=== PATIENT | female | born 1970 | race Caucasian/White ===

== ENCOUNTER → 2017-02-09 | Outpatient (CLI) | payer OTHER ==
[2017-02-10 10:39] LABS: Alternaria alternata IgE <0.35 kU/L (<0.35); Asperg. fumagatus IgE <0.35 kU/L (<0.35); Asperg. fumagatus IgE Class CLASS 0; Aureo. pullulans IgE <0.35 kU/L (<0.35); Birch(Com.Silvr) IgE Class CLASS 0; Candida albicans IgE Class CLASS 0; Cat Epith & Dander IgE <0.35 kU/L (<0.35); Cat Epith & Dander IgE Class CLASS 0; Clad herbarum IgE <0.35 kU/L (<0.35); Clad herbarum IgE Class CLASS 0; Com. Pigweed IgE <0.35 kU/L (<0.35); Com. Pigweed IgE Class CLASS 0; Common Ragweed IgE Class CLASS 0; Dermato. Pteronyssinus Class CLASS 0; Dermato. Pteronyssinus IgE <0.35 kU/L (<0.35); Dermato. farinae IgE <0.35 kU/L (<0.35); Dermato. farinae IgE Class CLASS 0; English Plantain IgE Class CLASS 0; Epicoccum purpurascens Class CLASS 0; Epicoccum purpurascens IgE <0.35 kU/L (<0.35); Johnson Grass IgE Class CLASS 0; Lamb's Quarter IgE <0.35 kU/L (<0.35); Lamb's Quarter IgE Class CLASS 0; Maple (Box Elder) IgE <0.35 kU/L (<0.35); Maple (Box Elder) IgE Class CLASS 0; Mucor racemosus IgE <0.35 kU/L (<0.35); Mucor racemosus IgE Class CLASS 0; Oak IgE <0.35 kU/L (<0.35); Rhizopus nigricans IgE <0.35 kU/L (<0.35); Rhizopus nigricans IgE Class CLASS 0; S.rostrata/Helminth Class CLASS 0; S.rostrata/Helminth IgE <0.35 kU/L (<0.35); Sycamore(Mpl.Lf) IgE <0.35 kU/L (<0.35); Sycamore(Mpl.Lf) IgE Class CLASS 0; Timothy Grass IgE <0.35 kU/L (<0.35); Timothy Grass IgE Class CLASS 0; Walnut Tree IgE <0.35 kU/L (<0.35); White Ash IgE Class CLASS 0
[2017-02-11 19:31] LABS: Corn IgG 7.5 mcg/mL (< 2.0); Cow's Milk IgG 48.7 mcg/mL (< 2.0); Oat IgG 8.9 mcg/mL (< 2.0); Peanut IgG 3.7 mcg/mL (< 2.0); Soybean IgG 4.3 mcg/mL (< 2.0); Tomato IgG 6.4 mcg/mL (< 2.0); Wheat IgG 7.1 mcg/mL (< 2.0)
[2017-02-22 14:21] LABS: Mis test requested (Blood) Coconut IgG
== END | disposition home or self-care (01) ==
LOC: LABWHC1 14:50
PROVIDERS: ATTEND Otolaryngology
DX: J30.89 Other allergic rhinitis (principal)
CPT/HCPCS: 36415; 86001; 86003

== ENCOUNTER → 2018-11-09 | Outpatient (CLI) | payer OTHER ==
--- NOTE | 2018-11-09 09:30 | US ---
EXAMINATION TYPE: US axilla LT DATE OF EXAM: 11/09/2018 COMPARISON: NONE CLINICAL HISTORY: R22.9 Localized swelling, mass and lump. TECHNIQUE: Targeted color and grayscale ultrasound was performed of the patient's left axillary palpa ble abnormality. At the region of the palpable left axillary abnormality for which the patient has be en on antibiotics for 20 days there is a 2.7 x 1.1 x 2.8 cm complex fluid collection with irregular m argins in extensive peripheral vascular flow. No internal vascular flow is seen. Surrounding subcutan eous tissue is hyperechoic. IMPRESSION: Sonographic findings are most compatible with a 2.8 cm abscess. No internal vascular james w is seen. No clinical resolution, this would be amenable to percutaneous drainage.
== END | disposition home or self-care (01) ==
LOC: RADMAMWWP 08:17
PROVIDERS: ATTEND Surgery
DX: R22.9 Localized swelling, mass and lump, unspecified (principal)
CPT/HCPCS: 77066

== ENCOUNTER → 2018-11-09 | Outpatient (CLI) | payer OTHER ==
[2018-11-09 07:20] VITALS: BP 114/75; PULSE 64; RESP 16; TEMP 98; BMI 23.7
--- NOTE | 2018-11-09 07:46 | P.GSHP ---
History of Present Illness H&P Date: 11/09/18 Chief Complaint: swelling under left arm June is a 48-year-old white female with a complaint of a left swollen axillary nodule for approximately 6 weeks. She has been on two antibiotics sulfa and keflex. It has not resolved. It is painful. It has increased in size. She has not had any trauma or infection to her arm. She was taking some homeopathic medications about the time she noted the swelling. She uses compounded Estrogen cream. She has been on that for about three years. Her last mamogram was several years ago. She has not had any fever or chills. Family History: mother: breast cancer at 66, she is well at this time father: prostate cancer maternal aunt: breast cancer brother: prostate Hormonal History: menarche: 9 2Ab, first full term 25, breast fed: yes menopause: 44 BCP: none hormones: 3 years Surgery: none Medical History: none Social History: smoke: none alcohol: wine drugs: none - Constitutional Constitutional: Denies chills, Denies fever - EENT Comment: decreased acuity Eyes: denies blurred vision, denies pain Ears: deny: decreased hearing, tinnitus Ears, nose, mouth and throat: Denies headache, Denies sore throat - Breasts Breasts: bilateral: as per HPI - Cardiovascular Cardiovascular: Denies chest pain, Denies shortness of breath - Respiratory Respiratory: Denies cough, Denies 7 - Gastrointestinal Gastrointestinal: Denies abdominal pain, Denies diarrhea, Denies nausea, Denies vomiting - Genitourinary (Female) Genitourinary: Denies dysuria, Denies hematuria - Menstruation Menstruation: Reports postmenopausal - Musculoskeletal Musculoskeletal: Denies myalgias - Integumentary Integumentary: Denies pruritus, Denies rash - Neurological Neurological: Denies numbness, Denies weakness - Psychiatric Psychiatric: Denies anxiety, Denies depression - Endocrine Endocrine: Denies fatigue, Denies weight change - Hematologic/Lymphatic Comment: swollen node under left arm - Allergic/Immunologic Comment: none Past Medical History Past Medical History: No Reported History History of Any Multi-Drug Resistant Organisms: None Reported Past Surgical History: No Surgical Hx Reported Past Anesthesia/Blood Transfusion Reactions: No Reported Reaction Past Psychological History: No Psychological Hx Reported Smoking Status: Never smoker Past Alcohol Use History: Occasional Past Drug Use History: None Reported - Past Family History Mother Family Medical History: Cancer Additional Family Medical History / Comment(s): Breast Cancer at age 66 Father Family Medical History: Cancer Additional Family Medical History / Comment(s): Prostate Cancer at age 66 Medications and Allergies Home Medications Medication Instructions Recorded Confirmed Type Cephalexin [Keflex] 500 mg PO Q12HR 11/09/18 11/09/18 History Allergies Allergy/AdvReac Type Severity Reaction Status Date / Time No Known Allergies Allergy Unverified 11/09/18 07:08 Surgical - Exam Vital Signs Temp Pulse Resp BP Pulse Ox 98.0 F 64 16 114/75 98 11/09/18 07:11 11/09/18 07:11 11/09/18 07:11 11/09/18 07:11 11/09/18 07:11 BMI 23.8 - General well developed, well nourished, no distress - Eyes normal ocular movement - ENT no hearing loss, no congestion - Neck no masses, trachea midline - Respiratory normal respiratory effort, clear to auscultation - Cardiovascular Rhythm: regular Heart Sounds: normal: S1, S2 - Abdomen Abdomen: soft, non tender, no guarding, no rigid, no rebound - Integumentary Swollen left axillary node/abcess about 3 by 2 cm in size - Neurologic no disoriented, no combative - Musculoskeletal normal gait, normal posture - Psychiatric oriented to time, oriented to person, oriented to place, speech is normal, memory intact Assessment and Plan Assessment: Impression: 1. swollen left axillary node/abscess 2. presently on Keflex 3. family history of cancer 4. family history of breast cancer 5. no other adenopathy of concern Plan: 1. bilateral mammogram 2. left axillary ultrasound 3. I&D left axillary abcess CC: Dr. Mendez, Dr. Quinonez
== END | disposition home or self-care (01) ==
LOC: WWCWWP 06:58
PROVIDERS: ATTEND Surgery
DX: Z53.9 Procedure and treatment not carried out, unspecified reason (principal)

== ENCOUNTER 2018-11-14 07:19 | Day surgery (SDC) | payer OTHER ==
[2018-11-10 09:17] VITALS: BMI 23.7
[~2018-11-14 07:19] MED LIST: DEXAMETHASONE SOD PHOSPHATE 10 MG/ML 1 ML VIAL IV ONE; HYDROmorphone 0.5 MG/0.5 ML SYRINGE IVP PRN; LACTATED RINGERS 1,000 ML IV SCH; ONDANSETRON 4 MG/2 ML VIAL IVP ONE; ONDANSETRON 4 MG/2 ML VIAL IVP PRN
[2018-11-14] MEDS ORDERED: LIDOCAINE 1% 20 ML VIAL (10MG/ML) FOR IV START INTRADERMA ONE (08:11)
[2018-11-14] MEDS ORDERED: LIDOCAINE 1% INJ 10MG/ML (20 ML MDV) ONE (08:26)
[2018-11-14] MEDS ORDERED: PROPOFOL 10 MG/ML 20 ML VIAL IV ONE (08:26)
[2018-11-14] MEDS ORDERED: fentaNYL (PF) 50 MCG/ML 2 ML AMP ONE (08:26)
[2018-11-14] MEDS ORDERED: SUCCINYLCHOLINE CHLORIDE 100 MG/5 ML SYR IV ONE (08:26)
[2018-11-14] MEDS ORDERED: MIDAZOLAM 2 MG/2 ML VIAL ONE (08:26)
[2018-11-14] MEDS ORDERED: HEPARIN SODIUM,PORCINE 5,000 UNIT/ML 1 ML VIAL SQ ONE (08:39)
--- NOTE | 2018-11-14 08:42 | P.PN ---
Progress Note - Text Progress Note Date: 11/14/18 The patient's ultrasound of the axilla was reviewed with radiology. The lesion was not felt to be able to be drained percutaneously. Therefore after discussion with the patient she is having incision and drainage of the lesion in the left axilla done in the operating room.
--- NOTE | 2018-11-14 09:14 | P.OP ---
Date of Procedure: 11/14/18 Preoperative Diagnosis: Abscess left axilla Postoperative Diagnosis: Same Procedure(s) Performed: Incision and drainage abscess left axilla Anesthesia: MACHELLE Surgeon: Jessica Livingston Estimated Blood Loss (ml): 5 IV fluids (ml): 600 Pathology: other (Contents of abscess) Condition: stable Disposition: same day Indications for Procedure: Enlarging abscess left axilla not be able to be drained percutaneously Operative Findings: Abscess left axilla Description of Procedure: The patient was brought to the operating room and following induction of anesthesia the left axilla was prepped and draped in a sterile fashion. An incision was made over the protruding portion of an abscess. Seropurulent fluid was obtained. Cultures were obtained. There was what appeared to be sebum within the cavity which was removed. This was sent to pathology. As the cavity was very friable. They were cauterized to attain hemostasis. The cavity itself was approximately 3 cm x 3 cm. The cavity was well irrigated after cultures were obtained. Secondary to the persistent oozing powderized Surgicel was placed. After we were assured that hemostasis was attained the area was packed using plain gauze. The patient tolerated the procedure in stable condition. All instrument and sponge counts were correct at the end of the case.
--- NOTE | 2018-11-14 09:16 | P.DS ---
Providers Attending physician: Jessica Livingston Primary care physician: Kevin Quinonez DO Plan - Discharge Summary Discharge Rx Participant: Yes New Discharge Prescriptions: No Action Cephalexin [Keflex] 500 mg PO Q12HR Discharge Medication List Cephalexin [Keflex] 500 mg PO Q12HR 11/09/18 [History] Follow up Appointment(s)/Referral(s): Jessica Livingston MD [STAFF PHYSICIAN] - 3 Days Activity/Diet/Wound Care/Special Instructions: Do not drive today Change packing twice a day May shower tomorrow Discharge Disposition: HOME SELF-CARE
[2018-11-14 09:27] VITALS: TEMP 96.8
[2018-11-14] MEDS: HYDROmorphone 1 MG/ML 1 ML SYRINGE IVP ONE ×2 (10:02→10:07)
[2018-11-14 10:39] VITALS: RESP 16
[2018-11-14] MEDS ORDERED: ONDANSETRON 4 MG/2 ML VIAL IVP ONE (11:40)
[2018-11-14] MEDS ORDERED: LACTATED RINGERS 1,000 ML IV ONE (11:44)
[2018-11-14 11:48] VITALS: BP 99/65; PULSE 62
== END 2018-11-14 13:05 | disposition home or self-care (01) ==
LOC: OR 07:19
PROVIDERS: ATTEND Surgery
DX: L02.412 Cutaneous abscess of left axilla (principal)
CPT/HCPCS: 81025; 88304; 87070; 87205; 87075; 87116; 87102; 87206; 10060; J2250; J0690; J2405; J2001; J3010; J1170; J0330; J2704

== ENCOUNTER → 2018-11-17 | Outpatient (CLI) | payer OTHER ==
[2018-11-17 14:14] VITALS: BP 115/76; PULSE 76; RESP 16; TEMP 97.8; BMI 24.1
--- NOTE | 2018-11-17 14:25 | P.PN ---
Progress Note - Text Progress Note Date: 11/17/18 Serious status post incision and drainage of the abscessed area under her left axilla on 9318. Pathology revealed necrotic/degenerated tissue with acute inflammation. The cultures were negative. The patient has not had any fever or chills. The patient does complain of discomfort at the site of the the abscess. Physical exam: Lungs: Clear Heart: Regular rate and rhythm Left axillary incision clean and dry with clean granulation tissue Impression: Resolving abscess left axilla Plan: 1. Continue present therapy 2. Follow-up 2 weeks CC: DR. Mendez, Dr. Quinonez
== END | disposition home or self-care (01) ==
LOC: WWCWWP 13:40
PROVIDERS: ATTEND Surgery
DX: Z53.9 Procedure and treatment not carried out, unspecified reason (principal)

== ENCOUNTER → 2018-11-21 | Outpatient (CLI) | payer OTHER ==
--- NOTE | 2018-11-21 10:37 | MM ---
Reason for exam: additional evaluation requested from abnormal screening. Last mammogram was performed less than 1 month ago. History: Patient is postmenopausal. Family history of breast cancer in mother at age 66 and breast cancer in maternal aunt at age 53. Taking estrogen beginning at age 44. Taking progesterone beginning at age 44. Taking other hormone beginning at age 44. MG 3D Follow Up No Charge RT Spot compression CC and LM view(s) were taken of the right breast. Prior study comparison: November 09, 2018, bilateral MG diagnostic mammo w CAD [facility]. The breast tissue is heterogeneously dense. This may lower the sensitivity of mammography. Right medial asymmetry resolves on additional views. The right lateral middle depth asymmetry improves but does not completely resolve. Superior correlate seen. Precautionary ultrasound will be done. These results were verbally communicated with the patient and result sheet given to the patient on 11/21/18. ASSESSMENT: Incomplete: need additional imaging evaluation, BI-RAD 0 RECOMMENDATION: Ultrasound of the right breast. (upper outer quadrant)
--- NOTE | 2018-11-21 10:39 | USB ---
Reason for exam: additional evaluation requested from abnormal screening. History: Patient is postmenopausal. Family history of breast cancer in mother at age 66 and breast cancer in maternal aunt at age 53. Taking estrogen beginning at age 44. Taking progesterone beginning at age 44. Taking other hormone beginning at age 44. US Breast Workup Limited RT Right limited breast ultrasound including focal area of concern, retroareolar and axilla demonstrates no cystic or solid lesion seen. Dense tissue throughout corresponds with mammogram. These results were verbally communicated with the patient and result sheet given to the patient on 11/21/18. ASSESSMENT: Benign, BI-RAD 2 RECOMMENDATION: Routine screening mammogram of both breasts in 1 year. Manage on a clinical basis with regard to left axillary abscess.
== END | disposition home or self-care (01) ==
LOC: RADMAMWWP 08:55
PROVIDERS: ATTEND Surgery
DX: R92.8 Other abnormal and inconclusive findings on diagnostic imaging of breast (principal)

== ENCOUNTER → 2018-12-08 | Outpatient (CLI) | payer OTHER ==
[2018-12-08 09:04] VITALS: BP 115/71; PULSE 61; RESP 16; TEMP 97.7; BMI 23.7
--- NOTE | 2018-12-08 09:21 | P.PN ---
Progress Note - Text Progress Note Date: 12/08/18 The patient is status post excision of a lump in the left axilla on 11-14-18. Pathology revealed necrotic/degenerated tissue with acute inflammation. Cultures were negative. The patient is not complaining of any fever or chills. She is not having any drainage of the area of concern. The area she has an packing is smaller in size. She is not complaining of any pain at this site. Physical exam: Examination of the left axillary area reveals that the area which was excised is clean and dry. It is healing without difficulty. Impression: 1. Area under the left arm is healing without difficulty Plan: 1. Follow-up on a when necessary basis Cc: Dr. Mendez, DR. Quinonez
== END ==
LOC: WWCWWP 08:43
PROVIDERS: ATTEND Surgery
DX: Z53.9 Procedure and treatment not carried out, unspecified reason (principal)

== ENCOUNTER → 2019-09-27 | Outpatient (CLI) | payer BC, OTHER | END | disposition home or self-care (01) | LOC: LABWHC1 09:28 | PROVIDERS: ATTEND Internal Medicine | DX: Z20.828 Contact with and (suspected) exposure to other viral communicable diseases (principal) | CPT/HCPCS: U0003; C9803 ==

== ENCOUNTER → 2020-01-23 | Outpatient (CLI) | payer BC | END | disposition home or self-care (01) | LOC: LABWHC1 12:09 | PROVIDERS: ATTEND Internal Medicine | DX: Z20.828 Contact with and (suspected) exposure to other viral communicable diseases (principal) | CPT/HCPCS: U0003; C9803 ==

== ENCOUNTER → 2020-08-18 | Outpatient (CLI) | payer BC ==
--- NOTE | 2020-08-20 11:51 | MM ---
Reason for exam: screening (asymptomatic). Last mammogram was performed 1 year and 9 months ago. History: Patient is postmenopausal. Family history of breast cancer in mother at age 66 and breast cancer in maternal aunt at age 53. Taking estrogen beginning at age 44. Taking progesterone beginning at age 44. Taking other hormone beginning at age 44. Physical Findings: A clinical breast exam by your physician is recommended on an annual basis and results should be correlated with mammographic findings. MG 3D Screening Mammo W/Cad Bilateral CC and MLO view(s) were taken. Prior study comparison: November 09, 2018, bilateral MG diagnostic mammo w CAD [facility]. The breast tissue is heterogeneously dense. This may lower the sensitivity of mammography. There is chronic nodularity in the left breast, low density, posterior upper outer quadrant. No significant changes when compared with prior studies. ASSESSMENT: Benign, BI-RAD 2 RECOMMENDATION: Routine screening mammogram of both breasts in 1 year. Patient should continue monthly self breast exams. A negative report should not preclude additional follow up of suspicious palpable abnormalities.
== END | disposition home or self-care (01) ==
LOC: RADMAMWWP 16:05
PROVIDERS: ATTEND Obstetrics & Gynecology
DX: Z12.31 Encounter for screening mammogram for malignant neoplasm of breast (principal); Z78.0 Asymptomatic menopausal state; Z80.3 Family history of malignant neoplasm of breast
CPT/HCPCS: 77063; 77067

== ENCOUNTER 2020-11-05 16:04 | Emergency (ER) | payer BC ==
[2020-11-05 16:53] VITALS: RESP 18; TEMP 98
--- NOTE | 2020-11-05 20:16 | US ---
EXAMINATION TYPE: US venous doppler duplex LE RT DATE OF EXAM: 11/05/2020 7:10 PM COMPARISON: NONE CLINICAL HISTORY: pain. Pain. SIDE PERFORMED: Right TECHNIQUE: The lower extremity deep venous system is examined utilizing real time linear array sonog aki with graded compression, doppler sonography and color-flow sonography. VESSELS IMAGED: Common Femoral Vein Deep Femoral Vein Greater Saphenous Vein * Femoral Vein Popliteal Vein Proximal Calf Veins (* superficial vessels) Right Leg: All visualized veins are patent, compressible, and with normal color and Doppler flow. IMPRESSION: No DVT of the right lower extremity.
--- NOTE | 2020-11-05 20:29 | ED ---
Recheck HPI - General Chief Complaint: Recheck/Abnormal Lab/Rx Stated Complaint: R Foot circulation issue Time Seen by Provider: 11/05/20 18:23 Source: patient, RN notes reviewed Mode of arrival: ambulatory Limitations: no limitations - History of Present Illness Initial Comments: 50-year-old female complaining of poor circulation her right lower extremity status post fifth metatarsal fracture. She notes that after getting out of the shower her foot gets red and cold. She notes that she was sent here by her orthopedist to get an evaluation for possible DVT. Patient denied any pain, she has full range of motion sensation in her right foot and lower extremity. She denied any new injury trauma. She denied any chest pain shortness of breath hea dache nausea vomiting diarrhea constipation fever fatigue chills. - Related Data Home Medications Medication Instructions Recorded Confirmed No Known Home Medications 11/05/20 11/05/20 Allergies Allergy/AdvReac Type Severity Reaction Status Date / Time No Known Allergies Allergy Verified 11/05/20 18:30 Review of Systems ROS Statement: Those systems with pertinent positive or pertinent negative responses have been documented in the HPI. ROS Other: All systems not noted in ROS Statement are negative. Past Medical History Past Medical History: No Reported History Additional Past Medical History / Comment(s): Current pain/infection left axillary area, on antibiotics, finishing today. History of Any Multi-Drug Resistant Organisms: None Reported Past Surgical History: No Surgical Hx Reported Additional Past Surgical History / Comment(s): Had broken nose reset. broken right foot - 3 weeks ago (date today 11-05-20) Past Anesthesia/Blood Transfusion Reactions: No Reported Reaction Past Psychological History: No Psychological Hx Reported Smoking Status: Never smoker Past Alcohol Use History: Occasional Past Drug Use History: None Reported - Past Family History Mother Family Medical History: Cancer Additional Family Medical History / Comment(s): Breast Cancer at age 66. Father Family Medical History: Cancer Additional Family Medical History / Comment(s): Prostate Cancer at age 66. Brother(s) Family Medical History: Cancer Additional Family Medical History / Comment(s): Prostate cancer. General Exam Limitations: no limitations General appearance: alert, in no apparent distress Head exam: Present: atraumatic, normocephalic, normal inspection Eye exam: Present: normal appearance, PERRL, EOMI. Absent: scleral icterus, conjunctival injection, periorbital swelling Neck exam: Present: normal inspection Respiratory exam: Present: normal lung sounds bilaterally. Absent: respiratory distress, wheezes, rales, rhonchi, stridor Cardiovascular Exam: Present: regular rate, normal rhythm, normal heart sounds. Absent: systolic murmur, diastolic murmur, rubs, gallop, clicks Back exam: Present: normal inspection, other (Pulses 2+ bilaterally in lower extremities.) Neurological exam: Present: alert, oriented X3 Psychiatric exam: Present: normal affect, normal mood Skin exam: Present: warm, dry, intact, normal color. Absent: rash Course Vital Signs 11/05/20 16:49 Temperature 98.0 F Pulse Rate 76 Respiratory 18 Rate Blood Pressure 117/63 O2 Sat by Pulse 99 Oximetry Medical Decision Making - Medical Decision Making 30-year-old female complaining of circulation pain issues in her right lower extremity status post fifth metatarsal fracture. Patient sent by Dr. Carver. Ultrasound of the right lower external ordered. Ultrasound negative for any DVTs. Patient will be referred to vascular. Case discussed with Dr. Rivas, patient discharge home. - Radiology Data Radiology results: report reviewed, image reviewed Ultrasound of the right lower extremity: All visualized veins are patent compressible and within normal color and Doppler flow. No DVT the right lower extremity. Disposition Clinical Impression: Right foot pain, Poor circulation of extremity Disposition: HOME SELF-CARE Condition: Stable Instructions (If sedation given, give patient instructions): Metatarsalgia (DC) Additional Instructions: Please return to the Emergency Department if symptoms worsen or any other concerns. Follow-up with vascular as soon as possible. Follow-up with primary care 1-2 days. Continue to follow with orthopedics as needed. Is patient prescribed a controlled substance at d/c from ED?: No Referrals: Kevin Quinonez DO [Primary Care Provider] - 1-2 days Irena Campbell DO [STAFF PHYSICIAN] - 1-2 days Time of Disposition: 20:27
[2020-11-05 20:36] VITALS: BP 118/60; PULSE 78
== END 2020-11-05 20:36 | disposition home or self-care (01) ==
LOC: EC 16:04
DX: M79.671 Pain in right foot (principal)
CPT/HCPCS: 99283

== ENCOUNTER → 2022-07-23 | Outpatient (CLI) | payer BC ==
--- NOTE | 2022-07-26 18:15 | MM ---
Reason for Exam: Screening (asymptomatic). Last mammogram was performed 1 year(s) and 11 month(s) ago. Patient History: Menarche at age 9. First Full-Term at age 25. Postmenopausal. Patient has history of breast feeding. Estrogen, starting at age 44. Currently using Progesterone, starting at age 44. Maternal aunt had breast cancer, age 53. Mother had breast cancer, age 66. Risk Values: Samantha 5 year model risk: 2.4%. NCI Lifetime model risk: 17.5%. Prior Study Comparison: 11/09/2018 Bilateral Diagnostic Mammogram, [facility]. 11/21/2018 Right Diagnostic Mammogram, [facility]. 08/18/2020 Bilateral Screening Mammogram, [facility]. Tissue Density: The breast tissue is heterogeneously dense. This may lower the sensitivity of mammography. Findings: Analyzed By CAD. Areas of bilateral asymmetric densities remain unchanged. There is no suspicious group of microcalcifications or new suspicious mass in either breast. Overall Assessment: Benign, BI-RAD 2 Management: Screening Mammogram of both breasts in 1 year. . Patient should continue monthly self-breast exams. A clinical breast exam by your physician is recommended on an annual basis. This exam should not preclude additional follow-up of suspicious palpable abnormalities. Note on Samantha scores and lifetime risk: 1. A Samantha score greater than 3% is considered moderate risk. If this is the case, consider specialist referral to assess eligibility for a risk reducing agent. 2. If overall lifetime risk for the development of breast cancer is 20% or higher, the patient may qualify for future screening with alternating mammogram and breast MRI. Electronically signed and approved by: Kamila Elise M.D. Radiologist
== END | disposition home or self-care (01) ==
LOC: RADMAMWWP 10:58
PROVIDERS: ATTEND Obstetrics & Gynecology
DX: Z12.31 Encounter for screening mammogram for malignant neoplasm of breast (principal); Z78.0 Asymptomatic menopausal state; Z80.3 Family history of malignant neoplasm of breast
CPT/HCPCS: 77063; 77067

== ENCOUNTER → 2023-08-12 | Outpatient (CLI) | payer BC ==
[2023-08-12 15:38] LABS: Appearance,Urine Clear (Clear); Bilirubin,Urine Negative (Negative); Blood,Urine Negative (Negative); Color,Urine Yellow (Yellow); Ketones,Urine Negative (Negative); Nitrite,Urine Negative (Negative); PH, Urine 6.5; Specific Gravity,Urine 1.005 (1.001-1.030); Urobilinogen,Urine 0.2 E.U./DL
[2023-08-12 15:41] LABS: Basophils # (A) 0.02 X 10*3/uL (0.00-0.10); Basophils % (A) 0.3 %; Eosinophils # (A) 0.09 X 10*3/uL (0.04-0.35); Eosinophils % (A) 1.3 %; HCT 44.2 % (37.2-46.3); HGB 14.8 g/dL (12.0-15.0); Lymphocytes # (A) 2.86 X 10*3/uL (0.90-5.00); Lymphocytes % (A) 42.4 %; MCH 31.2 pg (27.0-32.0); MCHC 33.5 g/dL (32.0-37.0); MCV 93.1 FL (80.0-97.0); Mean Platelet Volume 11.6 FL (9.5-12.2); Monocytes # (A) 0.61 X 10*3/uL (0.20-1.00); Monocytes % (A) 9.1 %; NRBC Per 100 WBC 0 X 10*3/uL (0.00-0.01); Neutrophils # (A) 3.15 X 10*3/uL (1.80-7.70); Neutrophils % (A) 46.8 %; Platelet Count 205 X 10*3/uL (140-440); RBC 4.75 X 10*6/uL (4.10-5.20); RDW 12.5 % (11.5-14.5); WBC 6.74 X 10*3/uL (4.50-10.00)
[2023-08-12 15:49] LABS: Bacteria,Urine None Seen (None Seen)
[2023-08-12 16:05] LABS: Chol/HDL Ratio 2.39 Ratio; VLDL Calculation 17.38 mg/dL (5.00-40.00)
[2023-08-12 16:06] LABS: ALT 17 U/L (8-44); AST 25 U/L (13-35); Albumin 4.7 g/dL (3.8-4.9); Albumin/Globulin Ratio 1.74 Ratio (1.60-3.17); Alkaline Phosphatase 82 U/L (41-126); Blood Urea Nitrogen 13.2 mg/dL (9.0-27.0); Calcium 10.1 mg/dL (8.7-10.3); Carbon Dioxide 24.4 mmol/L (21.6-31.8); Chloride 103 mmol/L (96-109); Globulin 2.7 g/dL (1.6-3.3); Glucose 93 mg/dL (70-110); LDL Cholesterol,Calculated 103.4 mg/dL (0.0-131.0); Sodium 141 mmol/L (135-145); T4, Free (Free Thyroxine) 1.18 ng/dL (0.80-1.80); Total Bilirubin 0.6 mg/dL (0.3-1.2); Total Protein 7.4 g/dL (6.2-8.2); Uric Acid 3.8 mg/dL (2.9-7.7)
== END | disposition home or self-care (01) ==
LOC: LABWHC1 10:55
PROVIDERS: ATTEND Internal Medicine
DX: Z00.00 Encounter for general adult medical examination without abnormal findings (principal); Z13.820 Encounter for screening for osteoporosis; E55.9 Vitamin D deficiency, unspecified; R68.89 Other general symptoms and signs; R79.9 Abnormal finding of blood chemistry, unspecified; R53.83 Other fatigue; R39.15 Urgency of urination
CPT/HCPCS: 36415; 80053; 80061; 81001; 82306; 83036; 84439; 84443; 84550; 85025